=== PATIENT | male | born 1975 | race Caucasian/White ===

== ENCOUNTER → 2016-09-25 | Outpatient (CLI) | payer BC ==
[~2016-09-25] MED LIST: CEPH-571 PO
[2016-09-25 11:21] LABS: BASO % 0.2 %; BASO ABS # 0.01 K/uL (0-0.2); COMPLETE YES; EOS % 2.2 %; HEMATOCRIT 42.7 % (42-52); IG% 0.5 %; LYMPH % 40.3 %; LYMPH ABS # 1.64 K/uL (1.2-3.4); MEAN CELL VOLUME 88.4 fL (80-100); MEAN CORPUSCULAR HEMOGLOBIN 32.1 pg (25-34); MEAN CORPUSCULAR HGB CONC 36.3 g/dl (32-36); MONO % 6.6 %; NEUT % 50.2 %; PLATELET COUNT 145 K/uL (130-400); RED BLOOD COUNT 4.83 M/uL (4.7-6.1); WHITE BLOOD COUNT 4.07 K/uL (4.8-10.8)
[2016-09-25 11:39] LABS: ALT/SGPT 41 U/L (12-78); AST/SGOT 22 U/L (15-37); BLOOD UREA NITROGEN 11 mg/dl (7-18); BUN/CREATININE RATIO 14.7 (10-20); CALCIUM 8.6 mg/dl (8.5-10.1); CARBON DIOXIDE 29 mmol/L (21-32); CHLORIDE 107 mmol/L (98-107); CREATININE 0.76 mg/dl (0.60-1.40); GLUCOSE 97 mg/dl (70-99); POTASSIUM 4.3 mmol/L (3.5-5.1); SODIUM 142 mmol/L (136-145)
[2016-09-25 11:42] LABS: ALB/GLOB RATIO 1.4 (0.9-2); ALKALINE PHOSPHATASE 68 U/L (45-117); CHOLESTEROL 136 mg/dl (0-200); CHOLESTEROL/HDL RATIO 3.2; HDL CHOLESTEROL 42 mg/dl; TRIGLYCERIDES 152 mg/dl (0-150); VERY LOW DENSITY LIPOPROT CALC 30 mg/dl
[2016-09-27 15:27] LABS: AFP TUMOR MARKER SERUM 3.3 NG/ML (<6.1)
== END | disposition home or self-care (01) ==
LOC: C.LABBC 07:45
PROVIDERS: ATTEND Internal Medicine Hematology
DX: C62.90 Malignant neoplasm of unspecified testis, unspecified whether descended or undescended (principal); E78.5 Hyperlipidemia, unspecified; Z13.21 Encounter for screening for nutritional disorder

== ENCOUNTER → 2016-10-04 | Outpatient (CLI) | payer BC | END | disposition home or self-care (01) | LOC: C.LABSPEC 16:18 | PROVIDERS: ATTEND Internal Medicine | DX: Z12.11 Encounter for screening for malignant neoplasm of colon (principal) ==

== ENCOUNTER → 2017-01-09 | Outpatient (CLI) | payer BC ==
[~2017-01-09] MED LIST changes: +OPTIRAY 320 IV PRN
--- NOTE | 2017-01-09 07:05 | DIAGNOSTIC IMAGING REPORT ---
CT ABD/PELVIS IV AND ORAL CONT CLINICAL HISTORY: SEMINOMA OF TESTES COMPARISON STUDY: 01/10/2016 TECHNIQUE: Following the IV administration of 91 mL of Optiray-320, CT scan of the abdomen and pelvis was performed from the lung bases to the proximal femurs. Images are reviewed in the axial, sagittal, and coronal planes. IV contrast was administered without complication. CT DOSE: 510.77 mGy.cm FINDINGS: Lower chest: There are minimal dependent atelectatic changes. Liver: There is a 1 cm hypodensity within the inferior aspect of the right lobe. This appears similar to a prior January 2014 study. This is therefore likely benign and possibly representing a small hemangioma. Gallbladder: Unremarkable. Spleen: The spleen is minimally enlarged measuring 13 cm. No focal splenic masses are visualized Pancreas: Unremarkable. Adrenal glands: Unremarkable. Kidneys: There is a to small to characterize 5 mm upper pole right renal hypodensity likely are representing a cyst. There is no hydronephrosis. Bowel: There are no transition zones indicate bowel obstruction. There is no evidence of acute diverticulitis. There is no evidence of acute appendicitis. Peritoneum: There is no intraperitoneal free air or abdominal ascites. Vasculature: The abdominal aorta is normal in course and caliber. Adenopathy: None. Pelvic viscera: The bladder, and pelvic viscera are unremarkable. Skeletal structures: No destructive osseous lesions are seen. IMPRESSION: 1. Stable right lobe hepatic hypodensity. This is likely benign 2. Minimal splenomegaly 3. No evidence of pathologic adenopathy. Electronically signed by: Damien Patiño M.D. 01/09/2017 7:04 AM Dictated Date/Time: 01/09/2017 6:59 AM
== END | disposition home or self-care (01) ==
LOC: C.CTS 06:32
PROVIDERS: ATTEND Internal Medicine Hematology
DX: C62.91 Malignant neoplasm of right testis, unspecified whether descended or undescended (principal)

== ENCOUNTER → 2017-01-17 | Outpatient (CLI) | payer BC ==
[~2017-01-17] MED LIST changes: -OPTIRAY 320 IV PRN
== END | disposition home or self-care (01) ==
LOC: C.LAB 12:52
PROVIDERS: ATTEND Internal Medicine
DX: E55.9 Vitamin D deficiency, unspecified (principal)

== ENCOUNTER → 2017-09-26 | Outpatient (CLI) | payer BC ==
[2017-09-26 15:35] LABS: BASO % 0.2 %; BASO ABS # 0.01 K/uL (0-0.2); EOS % 0.7 %; EOS ABS # 0.04 K/uL (0-0.5); HEMATOCRIT 40.9 % (42-52); HEMOGLOBIN 14.9 g/dL (14.0-18.0); IG# 0.01 K/uL (0.00-0.02); LYMPH % 31.1 %; LYMPH ABS # 1.74 K/uL (1.2-3.4); MEAN CELL VOLUME 89.5 fL (80-100); MEAN CORPUSCULAR HEMOGLOBIN 32.6 pg (25-34); MEAN CORPUSCULAR HGB CONC 36.4 g/dl (32-36); MEAN PLATELET VOLUME 10.8 fL (7.4-10.4); MONO % 3.8 %; MONO ABS # 0.21 K/uL (0.11-0.59); NEUT ABS # 3.58 K/uL (1.4-6.5); PLATELET COUNT 135 K/uL (130-400); RED CELL DISTRIBUTION WIDTH CV 11.9 % (11.5-14.5); RED CELL DISTRIBUTION WIDTH SD 38.9 fL (36.4-46.3); WHITE BLOOD COUNT 5.59 K/uL (4.8-10.8)
[2017-09-26 15:58] LABS: ALBUMIN 4.2 gm/dl (3.4-5.0); ALT/SGPT 36 U/L (12-78); AST/SGOT 26 U/L (15-37); BLOOD UREA NITROGEN 21 mg/dl (7-18); CARBON DIOXIDE 28 mmol/L (21-32); CHOLESTEROL 108 mg/dl (0-200); CREATININE 0.84 mg/dl (0.60-1.40); GLUCOSE 79 mg/dl (70-99); POTASSIUM 4.2 mmol/L (3.5-5.1); SODIUM 138 mmol/L (136-145)
[2017-09-26 16:00] LABS: ALKALINE PHOSPHATASE 51 U/L (45-117); LDL CHOLESTEROL (DIRECT) 64 mg/dl; TOTAL PROTEIN 6.9 gm/dl (6.4-8.2)
== END | disposition home or self-care (01) ==
LOC: C.LAB 14:48
PROVIDERS: ATTEND Internal Medicine
DX: Z00.00 Encounter for general adult medical examination without abnormal findings (principal); C62.90 Malignant neoplasm of unspecified testis, unspecified whether descended or undescended; E55.9 Vitamin D deficiency, unspecified